=== PATIENT | female | born 1995 | race African-American/Black ===

== ENCOUNTER → 2020-02-19 | Outpatient (CLI) | payer BC, SELFPAY ==
[2020-02-19 12:53] VITALS: BMI 44.1
[2020-02-19 17:38] LABS: Amphetamine Urine VISTA NEGATIVE (<1000 ng/mL); Barbiturate Urine VISTA NEGATIVE (< 200 ng/mL); Benzodiazepine Urine VISTA NEGATIVE (< 200 ng/mL); Cocaine Urine VISTA NEGATIVE (< 300 ng/mL); Ecstacy Urine VISTA NEGATIVE (< 500 ng/mL); Methadone Urine VISTA NEGATIVE (< 300 ng/mL); PCP Urine VISTA NEGATIVE (< 25 ng/mL); THC Urine VISTA NEGATIVE (< 50 ng/mL); Vista UDS pH Range 6
[2020-02-19 18:38] LABS: Chlamydia Trachomatis by PCR Negative (Negative); Neisserai gonorrhoeae by PCR Negative (Negative); Probe Check PASS; Sample Adequacy Control PASS; Specimen Processing Control PASS
[2020-02-21 16:33] LABS: HPV Reflexed? NOT INDICATED
== END | disposition home or self-care (01) ==
LOC: LABSPEC 16:23
PROVIDERS: Referring Provider Obstetrics & Gynecology; Visit Provider Obstetrics & Gynecology
DX: Z34.90 Encounter for supervision of normal pregnancy, unspecified, unspecified trimester (principal); Z12.4 Encounter for screening for malignant neoplasm of cervix
CPT/HCPCS: 80307; 87086; 87088; 87491; 87591; 88175; G0145

== ENCOUNTER → 2020-03-22 14:08 | Outpatient (CLI) | payer BC, SELFPAY ==
[2020-03-22 13:46] VITALS: BMI 44.1
[2020-03-22 15:16] LABS: NATERA MAILED SPECIMEN
== END ==
PROVIDERS: Referring Provider Obstetrics & Gynecology; Visit Provider Obstetrics & Gynecology
DX: Z34.82 Encounter for supervision of other normal pregnancy, second trimester (principal)
CPT/HCPCS: 36415

== ENCOUNTER → 2020-03-29 09:47 | Outpatient (CLI) | payer BC, SELFPAY ==
[2020-03-22 13:46] VITALS: BMI 44.1
[2020-03-29 11:27] LABS: Glucose GTT-Gestation. Fasting 95 mg/dL (<105)
[2020-03-29 13:39] LABS: Glucose GTT-Gestational 1 Hr 127 mg/dL (<190)
[2020-03-29 13:58] LABS: Glucose GTT-Gestational 2 Hr 96 mg/dL (<165)
[2020-03-29 15:00] LABS: Glucose GTT-Gestational 3 Hr 101 L (<145)
== END ==
PROVIDERS: Referring Provider Obstetrics & Gynecology; Visit Provider Obstetrics & Gynecology
DX: O99.810 Abnormal glucose complicating pregnancy (principal); O99.210 Obesity complicating pregnancy, unspecified trimester; E66.9 Obesity, unspecified; Z3A.00 Weeks of gestation of pregnancy not specified
CPT/HCPCS: 36415; 82951; 82952

== ENCOUNTER 2020-05-16 14:39 | Emergency (ER) | payer BC, SELFPAY ==
[2020-05-16 14:04] VITALS: BMI 44.1
[2020-05-16 14:41] VITALS: BP 138/77; PULSE 107; RESP 18; TEMP 36.8; O2SAT 98; BMI 44.0
--- NOTE | 2020-05-16 14:56 | ED.DCSUM_ITS ---
History of Present Illness Chief Complaint: Abd Pain Informant: Patient Narrative: 24 year-old G1, P0 at 20 weeks presents with concern for right lower quadrant pain. Patient was seen in her [employer] office this morning and was complaining of abdominal pain and sent into the emergency department for further evaluation. States that she felt as if she had to have a bowel movement this morning and when she finished she wiped and there was a small bit of spotting coming from her vagina. States that since that time she has had pain in her right lower quadrant that radiates into her groin and back. States it is aching in nature. Does admit to an episode of vomiting with continued nausea. Denies any dysuria, fever, chills, anorexia, further vaginal bleeding or discharge. Dr. Victoriano Bach [employer] called emergency department with concern for ureterolithiasis versus appendicitis. Advised blood work, urinalysis, and likely CT scan with pain control and antiemetics. Past Medical History - Allergies and Home Meds Allergies/Adverse Reactions: Allergies morphine Adverse Reaction (Severe, Verified 05/16/20 14:47) Anaphylaxis Primary Care Physician: Carolin Cain MD [STAFF PHYSICIAN] - Prior records reviewed: Yes Past Medical History: None Surgical History: no surgical history Lives: Alone Smoking Status: Never smoker Alcohol: None Drugs: None Review of Systems General: Denies: Chills, Fever, Sweats Eyes: Denies: Visual changes - bilaterally, Diplopia ENT: Denies: Rhinorrhea, Sore throat Cardiovascular: Denies: Chest pain, Palpitations Respiratory: Denies: Dyspnea, Cough, Dyspnea on exertion Gastrointestinal: Reports: Abdominal pain, Nausea, Vomiting. Denies: Diarrhea, Melena, Hematochezia Genitourinary: Denies: Dysuria, Hematuria, Frequency Musculoskeletal: Denies: Back pain, Extremity Pain Skin: Denies: Rash, Wounds Neurological: Denies: Headache, Weakness, Numbness Physical Exam Vital Signs/Narrative: Vital Signs Temp Pulse Resp BP Pulse Ox 05/16/20 14:41 98.3 F 107 H 18 138/77 H 98 Inital Vital Signs reviewed: Yes General: Well nourished, Well developed, No Acute Distress Head: Normocephalic, Atraumatic Eyes: Perrl, EOMI ENT: Moist mucous membranes, No rhinorrhea Neck: Supple, Nontender Cardiovascular: Regular rate, Regular rhythm, No murmurs Respiratory: No distress, CTA bilaterally, Chest nontender Abdomen: Soft, Nondistended, Normal bowel sounds, - - TTP in the RLQ. No rebound or rigidity. 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 Gravid uterus. Normal appendix. No hydronephrosis or radiodense ureterolithiasis. Electronically Signed: Jose Armas MD at 17:23 EDT , Service support , Laboratory Data 05/16/20 05/16/20 05/16/20 15:05 15:05 15:25 WBC 13.1 H RBC 4.38 Hgb 12.7 Hct 38.6 MCV 88.1 MCH 29.0 MCHC 32.9 RDW Std Deviation 40.9 RDW Coeff of Denise 12.9 Plt Count 307 MPV 10.2 Immature Gran % (Auto) 0.400 Neut % (Auto) 68.7 Lymph % (Auto) 24.9 Falls % (Auto) 4.7 Eos % (Auto) 1.1 Baso % (Auto) 0.2 Absolute Neuts (auto) 9.0 H Absolute Lymphs (auto) 3.26 Nucleated RBC % 0 Sodium 138 Potassium 3.8 Chloride 108 H Carbon Dioxide 25.0 Anion Gap 5 BUN 3 L Creatinine 0.55 Estim Creat Clear Calc 164.83 Est GFR (MDRD) Af Amer 172 Est GFR (MDRD) Non-Af 142 BUN/Creatinine Ratio 5.4 L Glucose 106 Calcium 8.8 Total Bilirubin 0.20 AST 8 L ALT 15 Alkaline Phosphatase 65 Total Protein 7.4 Albumin 2.9 L Globulin 4.5 H Albumin/Globulin Ratio 0.6 L Lipase 39 L Urine Color Yellow Urine Clarity Sl. Cloudy Urine pH 7.0 Ur Specific [place] 1.010 Urine Protein Negative Urine Glucose (UA) Normal Urine Ketones Negative Urine Occult Blood Negative Urine Nitrite Negative Urine Bilirubin Negative Urine Urobilinogen 1 H Ur Leukocyte Esterase Negative Urine RBC 0 SEEN Urine WBC 0 SEEN Ur Squamous Epith Cells 0-5 SEEN Urine Bacteria 0 SEEN Urine Mucus 0 SEEN - Medical Decision Making Appears well nontoxic. Vital signs within normal limits. Work shows a leukocytosis. CT of the abdomen pelvis with p.o. and IV contrast shows no acute appendicitis or ureterolithiasis. Spoke with Dr. Victoriano Bach who is agreeable with discharge home. She did request Keflex 4 times daily for the next 7 days. Patient was agreeable with this plan and given Zofran in the antibiotics for home. Asked to return for new or worsening symptoms. Discharged home in stable condition. ED Disposition - Plan for ED Patient: Disposition: Home or Assisted Living Diagnosis: Abdominal pain affecting Instructions: ED Abdominal Pain Unkn Cause Fem Prescriptions: Cephalexin [Keflex] 500 mg PO Q6 #28 cap Transmission Status: Received by [id number] Ondansetron [Zofran Odt] 4 mg PO Q8H PRN PRN #10 tab PRN Reason: Nausea Transmission Status: Received by [id number] Referrals: Carolin Cain MD [STAFF PHYSICIAN] -
[2020-05-16 15:17] LABS: Absolute Lymphocyte Count 3.26 X10^3/uL (0.83-4.51); Basophil# 0.02 X10^3/uL; Basophil% 0.2 % (0-1); Eosinophil# 0.14 X10^3/uL; Eosinophils% 1.1 % (0-5); Hematocrit 38.6 % (37-47); Hemoglobin 12.7 g/dL (12.0-15.0); Lymphocyte # 3.26 X10^3/ul (4.0); Lymphocyte % 24.9 % (19-41); Mean Corp Hgb Conc 32.9 g/dL (32-36); Mean Corpuscular Volume 88.1 fL (81-99); Mean Platelet Vol. 10.2 fl (6.2-12.0); Monocyte# 0.62 X10^3/uL; Monocyte% 4.7 % (0-10); NRBC Flagged by Analyzer 0 % (0-5); Neutrophil # 8.99 X10^3/uL (2.7-7.7); Neutrophil % 68.7 % (47-70); Platelet Count 307 K/mm3 (150-450); RBC Distribution Width CV 12.9 % (11.6-14.6); RBC Distribution Width SD 40.9 fl (35.1-43.9); Red Blood Count 4.38 M/mm3 (4.2-5.4); White Blood Count 13.1 K/mm3 (4.4-11.0)
[2020-05-16] MEDS: 0.9% Normal Saline 1,000 ML 1000 ML IV (15:29)
[2020-05-16] MEDS: Ondansetron 4 MG/2 ML Vial IV (15:29)
[2020-05-16 15:32] LABS: ALB/GLOB Ratio 0.6 RATIO (0.9-2.4); AST(SGOT) 8 U/L (15-37); Alanine Aminotransfer ALT/SGPT 15 U/L (13-56); Albumin, Serum 2.9 g/dL (3.2-5.0); Alkaline Phosphatase 65 U/L (45-117); Anion Gap 5 (5-15); BUN 3 mg/dL (7-18); BUN/Creat Ratio 5.4 RATIO (10-20); Calcium,Total 8.8 mg/dL (8.5-10.1); Chloride 108 mmol/L (98-107); Creatinine, Serum 0.55 mg/dL (0.55-1.02); EST Glomerular Filtration Rate 142 mL/min (>60); Est Glom Filt Rate - Afr Amer 172 mL/min (>60); Estimated Creatinine Clearance 164.83 ml/min; Globulin 4.5 g/dL (2.2-4.2); Glucose 106 mg/dL (74-106); Lipase 39 U/L (73-393); Potassium 3.8 mmol/L (3.5-5.1); Protein, Total 7.4 g/dL (6.4-8.2); Sodium Level 138 mmol/L (136-145)
[2020-05-16 15:39] LABS: Bacteria 0 SEEN /hpf (None Seen); Mucous, Urine 0 SEEN /hpf (<or=2+); Red Blood Cells-Urine 0 SEEN /hpf (0-5); White Blood Cells 0 SEEN /hpf (0-5)
--- NOTE | 2020-05-16 15:42 | CT_ITS ---
STUDY: CT ABDOMEN AND PELVIS WITH CONTRAST REASON FOR EXAM: Female, 24 years old. RLQ PAIN, RT FLANK PAIN, PT IS 22 WKS RADIATION DOSAGE (If Supplied By Facility): CTDIvol = ( 18.74 ) mGy, DLP = ( 1299.35 ) mGycm TECHNIQUE: Transaxial images were obtained from the dome of the diaphragm to the symphysis pubis without oral contrast. IV 100mL Isovue-300 was administered. Sagittal and coronal images were reconstructed. Individualized dose optimization techniques were used for this CT. COMPARISON: None. FINDINGS: The visualized lung bases are unremarkable. The visualized portions of the heart are within normal limits. Normal liver. Normal gallbladder and extrahepatic biliary system. Normal spleen. Normal pancreas. Normal bilateral adrenal glands. Normal right kidney. Normal left kidney. Normal visualized stomach. There is oral contrast throughout the small bowel. Normal colon. The appendix is visualized and appears normal. Normal abdominal aorta. Normal inferior vena cava. Normal retroperitoneum. Normal urinary bladder. Gravid uterus noted. Normal abdominal wall. Transitional vertebrae and Pseudoarticulation L5 and S1. 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 Gravid uterus. Normal appendix. No hydronephrosis or radiodense ureterolithiasis. Electronically Signed: Jose Armas MD at 17:23 EDT , Service support ,
[2020-05-16 15:44] LABS: Color, Urine Yellow (Yellow); Glucose, Dipstick Normal (Normal); Ketone-Dipstick Negative (Negative); Leukocyte Esterase-Dipstick Negative /ul (Negative); Nitrite-Dipstick Negative (Negative); Occult Blood-Urine Negative /ul (Negative); Protein-Dipstick Negative (Negative); Urine Bilirubin Dipstick Negative (Negative); Urine Clarity Sl. Cloudy (Clear); Urine Urobilinogen 1 mg/dl (Normal)
[2020-05-16 16:52] LABS: Squamous Epithelial Cells - UA 0-5 SEEN /hpf (5-10)
[2020-05-16 17:42] VITALS: BP 138/67; PULSE 59; RESP 16; O2SAT 99
== END 2020-05-16 17:47 | disposition home or self-care (01) ==
PROVIDERS: Emergency Provider Emergency Medicine
DX: O26.892 Other specified pregnancy related conditions, second trimester (principal); R10.31 Right lower quadrant pain; O21.9 Vomiting of pregnancy, unspecified; Z3A.20 20 weeks gestation of pregnancy
CPT/HCPCS: 74177; 80053; 81001; 83690; 85025; 96361; 96374; 99283; J7030; Q9967; A4216; J2405

== ENCOUNTER → 2020-07-19 06:51 | Outpatient (CLI) | payer BC, SELFPAY ==
[2020-06-24 11:14] VITALS: BMI 44.0
[2020-07-19 07:39] LABS: Glucose GTT-Gestation. Fasting 126 mg/dL (<105)
[2020-07-19 09:25] LABS: Glucose GTT-Gestational 1 Hr 176 mg/dL (<190)
[2020-07-19 10:55] LABS: Glucose GTT-Gestational 2 Hr 141 mg/dL (<165)
[2020-07-19 10:57] LABS: Glucose GTT-Gestational 3 Hr 106 L (<145)
== END ==
PROVIDERS: Referring Provider Obstetrics & Gynecology; Visit Provider Obstetrics & Gynecology
DX: R69 Illness, unspecified (principal)
CPT/HCPCS: 36415; 82951; 82952

== ENCOUNTER → 2020-08-02 13:13 | Outpatient (CLI) | payer BC, SELFPAY ==
[2020-06-24 11:14] VITALS: BMI 44.0
[2020-07-19 15:46] VITALS: BMI 44.0
--- NOTE | 2020-08-02 13:15 | US_ITS ---
STUDY: SECOND AND THIRD TRIMESTER OBSTETRICAL ULTRASOUND - LIMITED REASON FOR EXAM: Female, 25 years old GROWTH -- SUPERVISION OF HIGH RISK -- OBESITY LMP: 12/23/2019. PRIOR ULTRASOUND: None. TECHNIQUE: Transabdominal TECHNICAL QUALITY: Adequate. FINDINGS: There is a single intrauterine fetus. The fetus is in a breech presentation. There is demonstrated cardiac activity with a heart rate of 133 bpm. There is a normal amniotic fluid volume. The largest amniotic fluid pocket measures 3.9 cm x 5.3 cm. The amniotic fluid index (ELOINA) is 14.7 cm. The placenta is anterior in location and is not low lying. There are Grade 1 placental changes. The cervix measures 3.7 cm in length. BIOMETRY: BPD: 7.7 cm: 31 weeks, 0 days HC: 29.6 cm: 32 weeks, 1 days AC: 27.96 cm: 32 weeks, 1 days FL: 6.14 cm: 32 weeks, 0 days Age by LMP: 31 weeks, 6 days. DEB by LMP: 09/28/2020. age by current US: 32 weeks, 0 days. DEB by current US: 09/27/2020. Estimated weight: 1870 grams, +/- 273 grams, 41 percentile. US/OB Limited With Biometrics IMPRESSION: Single live intrauterine gestation with a mean gestational age of 32 weeks. Electronically Signed: Martínez Venegas, at 14:30 EDT , Service support ,
== END ==
PROVIDERS: Referring Provider Obstetrics & Gynecology; Visit Provider Obstetrics & Gynecology
DX: O09.93 Supervision of high risk pregnancy, unspecified, third trimester (principal); Z3A.32 32 weeks gestation of pregnancy
CPT/HCPCS: 76816

== ENCOUNTER → 2020-08-26 17:16 | Outpatient (CLI) | payer BC, SELFPAY ==
[2020-08-26 15:25] VITALS: BMI 43.2
== END | disposition home or self-care (01) ==
LOC: LABSPEC 17:16
PROVIDERS: Visit Provider Nurse Practitioner Women's Health
CPT/HCPCS: 87086; 87088

== ENCOUNTER → 2020-08-30 12:47 | Outpatient (CLI) | payer BC, SELFPAY ==
[2020-06-24 11:14] VITALS: BMI 44.0
[2020-08-26 15:25] VITALS: BMI 43.2
--- NOTE | 2020-08-30 12:48 | US_ITS ---
STUDY: SECOND AND THIRD TRIMESTER OBSTETRICAL ULTRASOUND REASON FOR EXAM: Female, 25 years old GROWTH LMP: 12/23/2019. TECHNIQUE: Transabdominal TECHNICAL QUALITY: Limited. Examination limited due to obesity. PRIOR ULTRASOUND: Comparison is made with prior study dated 08/02/2020. FINDINGS: There is a single intrauterine fetus. The fetus is in a cephalic presentation. There is demonstrated cardiac activity with a heart rate of 123 bpm. There is a normal amniotic fluid volume. The largest amniotic fluid pocket measures 4.8 cm. The amniotic fluid index (ELOINA) is 12.4 cm. The placenta is anterior in location and is not low lying. There are Grade 1 placental changes. The cervix measures 3.5 cm in length. The adnexal regions are not visualized. BIOMETRY: BPD: 8.7 cm: 35 weeks, 0 days HC: 31.4 cm: 35 weeks, 1 days AC: 30.7 cm: 34 weeks, 4 days FL: 6.8 cm: 34 weeks, 5 days CI: 81% FL/BPD: 78% FL/HC: FL/AC: 22% HC/AC: 1.02 age by current US: 34 weeks, 5 days. DEB by current US: 10/06/2020. Estimated weight: 2506 grams, +/- 371 grams, 23 %. age by prior US: 36 weeks, 0 days. DEB by prior US: 09/27/2020. Age by LMP: 35 weeks, 6 days. DEB by LMP: 09/28/2020. US/OB Limited With Biometrics IMPRESSION: Single live intrauterine gestation with a mean gestational age of 36 weeks. The measurements obtained today fall within the normal expected range. Electronically Signed: Martínez Venegas, at 14:00 EDT , Service support ,
== END ==
PROVIDERS: Referring Provider Obstetrics & Gynecology; Visit Provider Obstetrics & Gynecology
DX: Z34.93 Encounter for supervision of normal pregnancy, unspecified, third trimester (principal)
CPT/HCPCS: 76816; 87081

== ENCOUNTER 2020-09-21 18:50 | Inpatient (IN) | payer BC, SELFPAY ==
[2020-09-20 14:10] VITALS: BMI 42.7
[2020-09-21 18:20] VITALS: BP 123/80; PULSE 105; BMI 43.0
[2020-09-21 19:47] VITALS: BP 122/75; PULSE 93
[2020-09-21 19:52] LABS: Absolute Neutrophil Count 8.1 X10^3/uL (2.0-7.7); Basophil# 0.04 X10^3/uL; Basophil% 0.3 % (0-1); Eosinophil# 0.16 X10^3/uL; Eosinophils% 1.3 % (0-5); Hematocrit 40.8 % (37-47); Hemoglobin 13.3 g/dL (12.0-15.0); Lymphocyte % 28.3 % (19-41); Mean Corp Hgb Conc 32.6 g/dL (32-36); Mean Corpuscular Hgb 27.9 pg (27.0-32.0); Mean Corpuscular Volume 85.7 fL (81-99); Mean Platelet Vol. 10.3 fl (6.2-12.0); Monocyte# 0.75 X10^3/uL; Monocyte% 5.9 % (0-10); NRBC Flagged by Analyzer 0 % (0-5); Neutrophil # 8.12 X10^3/uL (2.7-7.7); Neutrophil % 63.9 % (47-70); Platelet Count 345 K/mm3 (150-450); RBC Distribution Width CV 13.7 % (11.6-14.6); RBC Distribution Width SD 42.5 fl (35.1-43.9); Red Blood Count 4.76 M/mm3 (4.2-5.4); White Blood Count 12.7 K/mm3 (4.4-11.0)
--- NOTE | 2020-09-21 20:19 | PCM.HPOB.BLA ---
- Problem List (1) Abnormal heart rate Status: Acute (2) 36 weeks gestation of Status: Acute Comment: Done at work on 09/16/20- NOT DETECTED; see scanned result (3) Abnormal glucose affecting Status: Acute Comment: normal 3 hr gtt. 1/4 values abnormal on repeat GTT. Recommended monitoring diet. Offered toucher up consult. (4) Active asthma Status: Acute Comment: singulair daily, mild intermittent (5) History of recurrent miscarriages Status: Acute Comment: APL testing negative at [facility] (6) Obesity affecting Status: Acute Qualifiers: Comment: 1 tm glucola. weekly nsts and growth us q 4 wks after 32. encouraged healthy weight gain in . (7) Status: Acute Qualifiers: Comment: carrier, nipt- low risk female, and ntd screening declined. Anatomy US normal (8) Supervision of high risk , antepartum Status: Acute Comment: PRR( labs/faxed to ) DEB 09/28/20 girl Edwardo Gonzales History and Physical Date of Admission: 09/21/20 Intake Vital Signs 09/20/20 Height 5 ft 9.5 in 09/20/20 Weight: 294 lb 2 oz 09/20/20 BMI 42.7 09/20/20 BP 124/86 H Intake Visit Reasons: 39 WK OB/NST Is patient in pain?: No Allergies morphine Adverse Reaction (Severe, Verified 09/20/20 14:10) Anaphylaxis Medications famotidine 20 mg tablet 20 mg PO DAILY 06/21/20 [History Confirmed 09/20/20] vitamin#30 30 mg iron-10 mg iron-folic acid 1 mg-omg3 capsule cap PO 08/30/20 [History Confirmed 09/20/20] Last Menstral Period: 12/23/19 Zika: Zika virus screening: Negative : No PFSH PFSH Medical History Active asthma (Acute) Anxiety and depression (Acute) Surgical History History of intestinal surgery (Acute) Family History Mother Diabetes CAD (coronary artery disease) Heart disease Hypertension Neuropathy Father history of drug and alcohol abuse Grandmother Myocardial infarction Heart disease Social History (Updated 09/21/20 @ 09:[address] Tanja Herman MD) number of children: 0 current occupational status: employed current occupation: MA at [employer] Smoking Status: Never smoker alcohol intake: never substance use type: does not use seatbelt use: always do you feel safe at home: Yes additional social history: Miller Rolon Works at [employer] Pregancy History 4 Elective abortions Hx Para Spontaneous abortions 3 Hx # Term Pregnancies Ectopic pregnancies Hx # Pregnancies Multiple births # of living children HPI 39 WK OB/NST: Details: RICKIE WEBSTER is a 25 year old who presents for decreased movement and is admitted for induction of labor for Category II FHT. OB Visit DEB Calculator Estimated Delivery Date Method Current WG Current Estimate 09/28/20 LMP (Certain) 39w 0d Other Estimates 10/01/20 Ultrasound #1 38w 4d Expected Delivery Route/Plan Labor Preferences- CB/BF classes: declines labor support person: Gonzales labor intervention preferences: open to standard interventions pain management options preferred: desires natural, but open to epidural cut cord/dad catch: cord, maybe : yes PP control planned: yes discussed possible routes of delivery and associated risks: discussed possible delivery modalities and possible indications for each including R/B/A of , VAVD, FAVD, and CS. questions answered. special requests: none Specific Issue/Plans flu vaccine: decline tdap vaccine: 08/09 rhogam: NA LARC form signed: 08/02 Problem list reviewed and updated with the most current plan of care details and appropriate orders placed. Relevant counseling for the gestational age provided. Continue routine care and follow up unless otherwise noted in visit notes/problem list details Initial Weight: 303 lb Date EGA Weight BP Urine Prot Glucose FHR FuHt Pres Dilation Effaced St Visit Note 03/22/20 12w 6d 303 lb (+0 oz) 122/72 Negative Negative 160 SM- no vb cramping plan NipT today 04/25/20 17w 5d 301 lb 4 oz (-1 lb 12 oz) 122/66 Negative Negative 151 NO VB. Has felt flutter. US scheduled. 05/16/20 20w 5d 299 lb (-4 lb) 132/80 Negative Negative 150 0 had vb and pelvic pressure and abdominal pain, to ER for immediate evluation had vb and pelvic pressure and abdominal pain, to ER for immediate evaluation for possible appendicitis or kidney stones. labor not suspected 05/24/20 21w 6d 301 lb (-2 lb) 126/80 Negative Negative 145 22 SM- no vb lof good fm no regular ctx 06/21/20 25w 6d 295 lb (-8 lb) 120/78 145 26 SM- no vb lof good fm no regular ctx. plan 3 hour gtt 07/19/20 29w 6d 291 lb 4 oz (-11 lb 12 oz) 128/76 Trace Negative 145 29 GP - no LOF, VB, DFM, ctx. 11/18 values abnormal on 3h GTT. Rec monitoring diet. Offered nutrition referral. 08/02/20 31w 6d 295 lb 4 oz (-7 lb 12 oz) 124/76 Negative Negative 145 31 GP - no LOF, VB, DFM, Ctx. Denies complaints. 08/09/20 32w 6d 297 lb 6 oz (-5 lb 10 oz) 118/80 Negative Negative GP - NST only, reactive 08/16/20 33w 6d 294 lb 4 oz (-8 lb 12 oz) 130/84 Negative Negative 140 34 GP - no ctx LOF, VB, DFM. Labor preferences reviewed. 08/23/20 34w 6d 293 lb 4 oz (-9 lb 12 oz) 120/74 Negative Negative SM- no vb lof good fm no regular ctx 08/26/20 35w 2d 295 lb 8 oz (-7 lb 8 oz) 128/76 Negative Negative 156 0 MH-work in for CTX Q30 min. Cervix closed. UA: MH-work in for CTX Q30 min. Cervix closed. UA: neg X 10. 08/30/20 35w 6d 294 lb (-9 lb) 140 SM- no vb lof good fm no regular ctx gbs collected 09/06/20 36w 6d 292 lb 2 oz (-10 lb 14 oz) 126/80 Negative Negative 140 37 0.5 GP - no LOF, VB, DFM. Irregular ctx. NST reactive. 09/13/20 37w 6d 114/86 120 0.5 SM- no vb lof good fm no regular ctx 09/20/20 38w 6d 294 lb 2 oz (-8 lb 14 oz) 124/86 Negative Negative 140 0.5 GP - no LOF, VB, DFM. Occasional ctx. Discussed IOL at 41w if does not go into labor. ACOG First Trimester First Trimester: Desire for , Alcohol, Tobacco Cessation, Illicit/Recreational Drug/Substance Use, Intimate Partner Violence, Barriers to care, Unstable Housing, Communication Barriers, Environmental/Work Hazards, Anticipated Course of Care, Toxoplasmosis Precations, Use of Any medications, Sexual activity, Exercise, Dental Care, Sauna/Hot tub use, Seat Belt use, Childbirth classes/Hospital facilities, , Travel, Indications for US and Screening for Aneuploidy Diagnostics Diagnostics Diagnostics Gest Glucose Tolerance MG/DL 07/19/20 Details: HIV: Urine Culture: Sequential Screen: NIPT Screen: ROS ROS Const Reports system reviewed and no additional complaints, except as documented Card Reports system reviewed and no additional complaints, except as documented Resp Reports system reviewed and no additional complaints, except as documented GI Reports system reviewed and no additional complaints, except as documented, Reports nausea Reports system reviewed and no additional complaints, except as documented Musc Reports system reviewed and no additional complaints, except as documented all other systems reviewed and negative Exam Const General: cooperative, healthy appearing, comfortable, no acute distress, well developed, well groomed Nutritional Appearance: average body habitus, well nourished Orientation: alert, awake, oriented x3 HENMT Head: normal to inspection, normocephalic, atraumatic Eyes Pupils: PERRL, accommodation normal Resp Effort & Inspection: normal respiratory effort, able to speak in complete sentences, symmetric chest movement Cardio Rate: regular rate GI Palpation: soft, no guarding, no masses, nontender Skin General: no rashes or lesions noted, elasticity normal, turgor normal Neuro General: alert, awake, oriented x3 Cranial Nerves: CN's II-XI intact bilaterally, sense of smell intact, PERRL, accommodation normal, EOM intact bilaterally Speech: speech normal Gait: normal gait Psych Appearance: grossly normal, well kempt Mental Status: mental status grossly normal Mood: congruent mood Affect: normal affect Speech and Movement: speech and movement normal Attitude: cooperative Thought Process: normal Thought Content: normal Judgment: judgment good Results POC Urinalysis 2 Dip (Clinic) Office Urine Glucose Negative Last Edit by Rona Díaz on 09/20/20 15:06 Office Urine Protein Negative Last Edit by Rona Díaz on 09/20/20 15:06 Assessment & Plan Problems 1. 36 weeks gestation of Z3A.36 Done at work on 09/16/20- NOT DETECTED; see scanned result 2. Abnormal glucose affecting O99.810 normal 3 hr gtt. 1/4 values abnormal on repeat GTT. Recommended monitoring diet. Offered toucher up consult. 3. History of recurrent miscarriages N96 APL testing negative at [facility] 4. 38 weeks gestation of Z3A.38 carrier, nipt- low risk female, and ntd screening declined. Anatomy US normal 5. Supervision of high risk , antepartum O09.90 PRR( labs/faxed to ) DEB 09/28/20 girl Edwardo Gonzales 6. Obesity affecting O99.210 1 tm glucola. weekly nsts and growth us q 4 wks after 32. encouraged healthy weight gain in . 7. Active asthma J45.909 singulair daily, mild intermittent Patient presented to triage for Decreased Movement and had significant deceleration on monitor. Given has also had decreased movement throughout the week, recommended induction of labor. Plan management for with Rios bulb/cytotec followed by pitocin/AROM. Pain management: desires natural but open to epidural. GBS negative. Rh positive COVID negative Rubella immune Management of any complications: none I have reviewed the [facility] and made any clinically relevant updates. Orders Orders: POC Urinalysis 2 Dip (Clinic) 09/20/20 OB NST 09/20/20 O99.210 Coding Diagnoses 36 weeks gestation of Z3A.36 Abnormal glucose affecting O99.810 History of recurrent miscarriages N96 38 weeks gestation of Z3A.38 ??Weeks of gestation: 38 weeks Supervision of high risk , antepartum O09.90 Obesity affecting O99.210 Active asthma J45.909 UPDATE- I have seen the patient and performed any clinically relevant updates to the history and physical exam. Tanja Herman MD
[2020-09-21] MEDS: 0.9% Saline Lock 10 ML Syringe IV (20:22)
[2020-09-21] MEDS: Lactated Ringers 500 ML 999 ML IV (20:43)
[2020-09-21] MEDS: Lactated Ringers 1,000 ML 50 ML IV (21:14)
[2020-09-21] MEDS: 0.9% Normal Saline Single 100 ML IV.SOLN. IY (21:23)
[2020-09-21] MEDS: Oxytocin 30 units/NS 500 ml 30 UNITS/500 ML IV.SOLN IV (22:11)
[2020-09-21 22:22] VITALS: BP 125/75; PULSE 88; TEMP 36.6
[2020-09-21 23:38] VITALS: TEMP 36.9
[2020-09-21 23:39] VITALS: BP 132/83; PULSE 101
[2020-09-22] VITALS (36 sets, daily range): BP systolic 88–150; BP diastolic 48–88; PULSE 74–107; TEMP 36.1–37.2; O2SAT 97–100
[2020-09-22] MEDS: Acetaminophen 325 MG Tablet PO (00:32)
[2020-09-22] MEDS: Lactated Ringers 500 ML 999 ML IV (03:01)
[2020-09-22] MEDS: fentaNYL-bupivacaine (epidural) 100 ML BAG EPIDURAL ×4 (03:51→20:01)
[2020-09-22] MEDS: Lactated Ringers 1,000 ML 200 ML IV ×3 (07:07→20:10)
[2020-09-22 07:42] LABS: Hepatitis B Surface Antigen Non-Reactive (Nonreactive)
[2020-09-22] MEDS: Ondansetron 4 MG/2 ML Vial IV ×2 (10:19→18:06)
[2020-09-22] MEDS: Lactated Ringers 1,000 ML 999 ML IV (16:01)
[2020-09-23] VITALS (25 sets, daily range): BP systolic 95–126; BP diastolic 42–82; PULSE 68–97; RESP 14–19; TEMP 36.1–36.9; O2SAT 96–99
[2020-09-23] MEDS: Lactated Ringers 500 ML 999 ML IV (00:43)
[2020-09-23] MEDS: fentaNYL-bupivacaine (epidural) 100 ML BAG EPIDURAL ×2 (00:44→05:29)
[2020-09-23] MEDS: Lactated Ringers 1,000 ML 200 ML IV ×2 (01:41→06:41)
--- NOTE | 2020-09-23 08:16 | PCM.PN.BLA ---
Progress Note Patient seen and examined this am. FHT Cat I at this time, but had multiple decelerations overnight requiring pitocin to be discontinued. Discussed with patient that cervix is unchanged at this time - remains /-2. Discussed that 1100 will be 18 hours since the last time that she made cervical change and that she has been on pitocin with her water broken for ~24 hours at this time. Discussed that if she does not make cervical change on exam at 1100, will plan to proceed with primary for failed induction. RN and charge nurse made aware of plan of care. All questions answered. STROKE Vital Signs/Narrative: Vital Signs Temp Pulse BP Pulse Ox 09/23/20 06:57 80 112/56 L 09/23/20 06:56 98 09/23/20 05:59 74 113/55 L 09/23/20 05:58 97.5 F L 09/23/20 04:56 77 107/60 98
--- NOTE | 2020-09-23 08:47 | PCM.PN.BLA ---
Progress Note Plan of care again reviewed with nursing. Will recheck at 1030 and if no change, will plan for at 1100. STROKE Vital Signs/Narrative: Vital Signs Temp Pulse BP Pulse Ox 09/23/20 08:21 97.5 F L 95 117/68 97 09/23/20 06:57 80 112/56 L 09/23/20 06:56 98 09/23/20 05:59 74 113/55 L 09/23/20 05:58 97.5 F L 09/23/20 04:56 77 107/60 98
[2020-09-23] MEDS: Sodium Citrate/Citric Acid 30 ML UDC PO (10:47)
[2020-09-23] MEDS: Methylergonovine 0.2 MG/ML Ampul IM (11:33)
[2020-09-23] MEDS: Oxytocin 30 units/NS 500 ml 30 UNITS/500 ML IV.SOLN 167 UNITS IV (12:23)
--- NOTE | 2020-09-23 12:35 | NURSING ---
RN talked w/ Dr. Herman about difficulty feeling fundus. Per MD okay as long as bleeding remains okay. Fundus can be felt at times.
[2020-09-23] MEDS: Acetaminophen 500 MG Tablet 1000 MG PO ×2 (13:25→19:47)
[2020-09-23] MEDS: Lactated Ringers 1,000 ML 100 ML IV (15:34)
[2020-09-23] MEDS: 0.9% Saline Lock 10 ML Syringe IV (15:34)
[2020-09-23] MEDS: oxyCODONE 5 MG Tablet PO ×3 (17:05→22:38)
[2020-09-23] MEDS: Ketorolac 30 MG/ML Syringe IV (18:36)
--- NOTE | 2020-09-23 21:22 | OP.PCM_ITS ---
Problem List (1) Abnormal heart rate Status: Acute (2) 36 weeks gestation of Status: Acute Comment: Done at work on 09/16/20- NOT DETECTED; see scanned result (3) Abnormal glucose affecting Status: Acute Comment: normal 3 hr gtt. 1/4 values abnormal on repeat GTT. Recommended monitoring diet. 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 (4) Active asthma Status: Acute Comment: singulair daily, mild intermittent (5) History of recurrent miscarriages Status: Acute Comment: APL testing negative at [facility] (6) Obesity affecting Status: Acute Qualifiers: Comment: 1 tm glucola. weekly nsts and growth us q 4 wks after 32. encouraged healthy weight gain in . (7) Status: Acute Qualifiers: Comment: carrier, nipt- low risk female, and ntd screening declined. Anatomy US normal (8) Supervision of high risk , antepartum Status: Acute Comment: PRR( labs/faxed to ) DEB 09/28/20 girl Edwardo Gonzales Delivery Classification: ERNESTO Final DEB: 09/28/20 Gestational age: 39 Weeks and 2 Days power transmission engineer: Carolin Cain Type of Anesthesia:: Spinal Special Medications: Ancef/Azithromycin Date of Procedure: 09/23/20 Pre-Operative Diagnosis: Term , induction of labor for category 2 heart rate tracing, failed induction Post-Operative Diagnosis: Same Indications: A 5-year-old G4, P0 at 39 weeks gestation admitted for induction of labor for category 2 heart rate tracing. She underwent a 36-hour induction including Rios bulb and Pitocin. Her water had been broken since 9 AM on 09/22. Her cervix had been unchanged at 5/60/-3 since 1700 on 09/22. As she had been 18 hours on Pitocin with her water broken at the same dilation, I recommended proceeding with a primary section for failed induction. The risks, benefits, indications, and alternatives to the procedure were discussed with the patient including bleeding, infection, and visceral or vascular injury and she agreed to proceed. Indications for : Failure to Progress, Failed Induction Description of Procedure: The patient is a 25-year-old G4, P0 at 39 weeks gestation presented for induction of labor for category 2 heart rate tracing and is undergoing a primary for failed induction. Spinal anesthesia was placed without difficulty. Rios catheter was placed. The patient was placed in the dorsal supine position with leftward tilt. Patient was prepped and draped in the normal sterile fashion. Pfannenstiel skin incision was made with the scalpel and carried through to the underlying layer of fascia with the scalpel. Fascia was nicked in the midline and the incision extended laterally. The rectus bellies were dissected off superiorly and inferiorly with out complication both sharply and bluntly. The peritoneum was entered digitally. The incision was stretched and a low transverse uterine incision was made with the scalpel. The infant's head was delivered atraumatically followed by the anterior and posterior shoulders without complication the rest of the delivered. The cord was clamped and cut and the was handed off to awaiting nurse. The placenta was delivered spontaneously immediately following and was noted to be intact and have a three-vessel cord. The uterus was exteriorized cleared of all clots and debris, and the incision was closed in a double layer closure using #1 Monocryl. The ovaries and fallopian tubes were noted to be within normal limits. The uterus was returned to the maternal abdomen and gutters were cleared of all clots and debris. The peritoneum was closed with 3-0 Monocryl in a running fashion. Gloves were changed prior to fascial closure. Fascia was closed with 0 PDS in a running fashion. Subcutaneous tissue was copiously irrigated and the skin was closed with 3-0 Monocryl in a subcuticular fashion. Mepilex dressing was applied without complication. Patient was taken to recovery in stable condition. It was discussed with the patient that based on the clinical information obtained during this encounter, combined with her history, I discussed with the patient that I do feel her pelvis was somewhat tight, but that if she strongly desired a trial at a vaginal delivery in the future and she were to go into labor on her own, I feel that this would be a possibility. Amniotic Membrane Rupture Type: Artificial Amniotic Fluid Description: Clear Placenta Disposition: [facility] Drain: Rios to straight drain Fluids Replaced: 500 Cord Entanglement: Around neck x 1, loose Nuchal Cord Compression: Without compression Cord Vessel Description: 3 Vessels Esitmated Blood Loss (ml): 600 cc Infant Gender: Female Delayed cord clamping: Yes Antibiotic Given: Ancef 3 grams IV x1, Zithromax 500 mg/5 mL X1 Pt instructed on risks of surgery: Bleeding, Anesthesia Risks, Infection, Injury to surrounding structure(s) including bowel and bladder Complications: None - Admit VTE Documentation VTE Present on Admission: No VTE Mechan Device Prophylaxis: SCD's VTE Pharm Prophylaxis ordered?: Yes
[2020-09-24] VITALS: BP 116/72; PULSE 85; RESP 18; TEMP 36.3; O2SAT 97
[2020-09-24] MEDS: Ketorolac 30 MG/ML Syringe IV ×3 (00:13→12:53)
[2020-09-24] MEDS: Enoxaparin 40 MG/0.4 ML Syringe SC ×3 (00:14→23:03)
[2020-09-24] MEDS: 0.9% Saline Lock 10 ML Syringe IV ×3 (00:14→12:52)
[2020-09-24] MEDS: Acetaminophen 500 MG Tablet 1000 MG PO ×4 (02:10→20:44)
[2020-09-24 04:00] VITALS: BP 110/55; PULSE 70; RESP 18; TEMP 36.4
[2020-09-24] MEDS: oxyCODONE 5 MG Tablet PO ×4 (04:09→19:37)
[2020-09-24 04:31] LABS: Hematocrit 31.6 % (37-47); Hemoglobin 10.2 g/dL (12.0-15.0); Mean Corp Hgb Conc 32.3 g/dL (32-36); Mean Corpuscular Hgb 28.5 pg (27.0-32.0); Mean Corpuscular Volume 88.3 fL (81-99); Mean Platelet Vol. 10.1 fl (6.2-12.0); Platelet Count 258 K/mm3 (150-450); RBC Distribution Width CV 13.9 % (11.6-14.6); RBC Distribution Width SD 44.2 fl (35.1-43.9); Red Blood Count 3.58 M/mm3 (4.2-5.4); White Blood Count 15.7 K/mm3 (4.4-11.0)
--- NOTE | 2020-09-24 07:55 | PN.OBGYN_ITS ---
Patient Problems: Active and Suspected Problems (Last Reviewed 09/20/20 @ 14:10 by Rona Díaz) Abnormal heart rate (Acute) 36 weeks gestation of (Acute) Done at work on 09/16/20- NOT DETECTED; see scanned result Abnormal glucose affecting (Acute) normal 3 hr gtt. / values abnormal on repeat GTT. Recommended monitoring diet. Offered assistant elementary teacher consult. History of recurrent miscarriages (Acute) APL testing negative at [facility] (Acute) carrier, nipt- low risk female, and ntd screening declined. Anatomy US normal Supervision of high risk , antepartum (Acute) PRR( labs/faxed to [facility]) DEB 09/28/20 girl Edwardo Gonzales Obesity affecting (Acute) 1 tm glucola. weekly nsts and growth us q 4 wks after 32. encouraged healthy weight gain in . Active asthma (Acute) singulair daily, mild intermittent Subjective: Patient doing well without complaints. Tolerating PO. Ambulating and voiding without difficulty. well. Denies chest pain, shortness of breath, calf pain/swelling, fevers, chills, lightheadedness. - Physical Exam Vitals/I&O's: Vital Signs Temp Pulse Resp BP Pulse Ox 97.5 F L 70 18 110/55 L 97 09/24/20 04:00 09/24/20 04:00 09/24/20 04:00 09/24/20 04:00 09/24/20 00:00 Oxygen Delivery Method Room Air Weight: 295 lb 10.238 oz Body Mass Index (BMI) 43.0 Intake and Output for Last 24 Hours 09/22/20 09/23/20 09/24/20 23:59 23:59 23:59 Intake Total 5463.01 / 5463.01 6173.35 / 6173.35 Output Total 1550 / 1550 2100 / 2400 300 / 300 Balance 3913.01 / 3913.01 4073.35 / 3773.35 -300 / -300 General: Alert, Oriented x3 Abdomen: Soft, Non-Distended, - - FF below U. Dressing dry and intact. Appropriately tender Microbiology Past 72 Hours 09/21/20 22:20 Mucosa - Nasopharyngeal Respiratory Syncytial Virus Ag Scrn - Final Laboratory Results 09/24/20 04:20: WBC 15.7 H, RBC 3.58 L, Hgb 10.2 L, Hct 31.6 L, MCV 88.3, MCH 28.5, MCHC 32.3, RDW Std Deviation 44.2 H, RDW Coeff of Denise 13.9, Plt Count 258, MPV 10.1 Current Medications Acetaminophen (Acetaminophen 500 Mg Tablet) 1,000 mg PO Q6H REPLACED BY [facility] Last Admin: 09/24/20 02:10 Dose: 1,000 mg Documented by: Bisacodyl (Bisacodyl 10 Mg Suppository) 10 mg RECTAL UD PRN PRN Reason: If no BM Enoxaparin Sodium (Enoxaparin 40 Mg/0.4 Ml Syringe) 40 mg SC 1130,2330 REPLACED BY [facility] Last Admin: 09/24/20 00:14 Dose: 40 mg Documented by: Famotidine (Famotidine 20 Mg Tablet) 20 mg PO DAILY REPLACED BY [facility] Hydrocortisone (Hydrocortisone 2.5% Crm) 1 applic TOPICAL TID PRN PRN; Protocol PRN Reason: Discomfort Ketorolac Tromethamine (Ketorolac 30 Mg/Ml Syringe) 30 mg IV Q6 REPLACED BY [facility] Stop: 09/24/20 12:01 Last Admin: 09/24/20 06:39 Dose: 30 mg Documented by: Methylergonovine Maleate (Methylergonovine 0.2 Mg/Ml Ampul) 0.2 mg IM X1 PRN PRN Reason: Uterine Atony Last Admin: 09/23/20 11:33 Dose: 0.2 mg Documented by: Montelukast Sodium (Montelukast 10 Mg Tablet) 10 mg PO DAILY REPLACED BY [facility] Naproxen (Naproxen 250 Mg Tablet) 500 mg PO Q8H REPLACED BY [facility] Ondansetron HCl (Ondansetron 4 Mg/2 Ml Vial) 4 mg IV Q4H PRN PRN PRN Reason: Nausea Oxycodone HCl (Oxycodone 5 Mg Tablet) 5 - 10 mg PO Q4H PRN PRN PRN Reason: Pain Score 4-10 Last Admin: 09/24/20 04:09 Dose: 10 mg Documented by: Multivit/Folic Acid/Iron ( Vits Tablet) 1 tablet PO DAILY@1200 REPLACED BY [facility] Prochlorperazine Edisylate (Prochlorperazine 10 Mg/2 Ml Vial) 10 mg IV Q6H PRN PRN PRN Reason: NAUSEA Senna/Docusate Sodium (Senna/Docusate Sodium 1 Tablet) 0 tablet PO DAILY [facility] Simethicone (Simethicone 80 Mg Tablet) 80 mg PO PCHS PRN PRN Reason: Indigestion/stomach pain Sodium Chloride (0.9% Saline Lock 10 Ml Syringe) 5 - 15 ml IV UD PRN PRN Reason: SALINE FLUSH Last Admin: 09/24/20 06:39 Dose: 10 ml Documented by: Medical Necessity - Tobacco Use Smoking Status: Former smoker Assessment/Plan All Active Problems (Last Reviewed 09/20/20 @ 14:10 by Rona Díaz) Abnormal heart rate (Acute) 36 weeks gestation of (Acute) Abnormal glucose affecting (Acute) History of recurrent miscarriages (Acute) (Acute) Supervision of high risk , antepartum (Acute) Obesity affecting (Acute) Active asthma (Acute) s/p LTCS PPD # 1 1. routine post care 2. breast feeding- support given 3. rh positive 4. rubella immune
[2020-09-24 08:00] VITALS: BP 129/72; PULSE 78; RESP 18; TEMP 35.7; O2SAT 97
[2020-09-24] MEDS: Prenatal Vits Tablet 1 TABLET PO (09:52)
[2020-09-24] MEDS: Senna/Docusate Sodium 1 Tablet PO (09:52)
[2020-09-24] MEDS: Montelukast 10 MG Tablet PO (09:53)
[2020-09-24] MEDS: Famotidine 20 MG Tablet PO (12:40)
[2020-09-24 13:00] VITALS: BP 137/87; PULSE 84; RESP 16; TEMP 35.7
[2020-09-24 17:00] VITALS: BP 132/84; PULSE 80; RESP 16; TEMP 35.8
[2020-09-24] MEDS: Naproxen 250 MG Tablet 500 MG PO (18:30)
[2020-09-24 19:29] VITALS: BP 123/74; PULSE 74; RESP 16; TEMP 36.4
[2020-09-25 02:18] VITALS: BP 112/65; PULSE 74; RESP 16; TEMP 36.4
[2020-09-25] MEDS: Acetaminophen 500 MG Tablet 1000 MG PO ×2 (02:20→08:08)
[2020-09-25] MEDS: Naproxen 250 MG Tablet 500 MG PO ×2 (02:21→10:31)
[2020-09-25] MEDS: oxyCODONE 5 MG Tablet PO ×2 (02:21→08:08)
[2020-09-25 07:18] VITALS: BP 138/70; PULSE 80; RESP 16; TEMP 36.3; O2SAT 97
--- NOTE | 2020-09-25 07:45 | PCM.PN.OB ---
Patient Problems: Active and Suspected Problems (Last Reviewed 09/20/20 @ 14:10 by Rona Díaz) Abnormal heart rate (Acute) 36 weeks gestation of (Acute) Done at work on 09/16/20- NOT DETECTED; see scanned result Abnormal glucose affecting (Acute) normal 3 hr gtt. 11/18 values abnormal on repeat GTT. Recommended monitoring diet. Offered attendant arcade consult. History of recurrent miscarriages (Acute) APL testing negative at [facility] (Acute) carrier, nipt- low risk female, and ntd screening declined. Anatomy US normal Supervision of high risk , antepartum (Acute) PRR( labs/faxed to [facility]) DEB 09/28/20 girl Edwardo Gonzales Obesity affecting (Acute) 1 tm glucola. weekly nsts and growth us q 4 wks after 32. encouraged healthy weight gain in . Active asthma (Acute) singulair daily, mild intermittent Subjective: Patient doing well without complaints. Tolerating PO. Ambulating and voiding without difficulty. Breast feeding well. Denies chest pain, shortness of breath, calf pain/swelling, fevers, chills, lightheadedness. - Physical Exam Vitals/I&O's: Vital Signs Temp Pulse Resp BP Pulse Ox 97.4 F L 80 16 138/70 H 97 09/25/20 07:18 09/25/20 07:18 09/25/20 07:18 09/25/20 07:18 09/25/20 07:18 Oxygen Delivery Method Room Air Weight: 295 lb 10.238 oz Body Mass Index (BMI) 43.0 Intake and Output for Last 24 Hours 09/23/20 09/24/20 09/25/20 23:59 23:59 23:59 Intake Total 6173.35 / 6173.35 Output Total 2100 / 2400 300 / 300 Balance 4073.35 / 3773.35 -300 / -300 General: Alert, Oriented x3, Cooperative Abdomen: Soft, Non-Distended, - - FF below U. Dressing dry and intact. Minimally tender Current Medications Acetaminophen (Acetaminophen 500 Mg Tablet) 1,000 mg PO Q6H [facility] Last Admin: 09/25/20 02:20 Dose: 1,000 mg Documented by: Bisacodyl (Bisacodyl 10 Mg Suppository) 10 mg RECTAL UD PRN PRN Reason: If no BM Enoxaparin Sodium (Enoxaparin 40 Mg/0.4 Ml Syringe) 40 mg SC 1130,2330 [facility] Last Admin: 09/24/20 23:03 Dose: 40 mg Documented by: Famotidine (Famotidine 20 Mg Tablet) 20 mg PO DAILY [facility] Last Admin: 09/24/20 12:40 Dose: 20 mg Documented by: Hydrocortisone (Hydrocortisone 2.5% Crm) 1 applic TOPICAL TID PRN PRN; Protocol PRN Reason: Discomfort Methylergonovine Maleate (Methylergonovine 0.2 Mg/Ml Ampul) 0.2 mg IM X1 PRN PRN Reason: Uterine Atony Last Admin: 09/23/20 11:33 Dose: 0.2 mg Documented by: Montelukast Sodium (Montelukast 10 Mg Tablet) 10 mg PO DAILY [facility] Last Admin: 09/24/20 09:53 Dose: 10 mg Documented by: Naproxen (Naproxen 250 Mg Tablet) 500 mg PO Q8H [facility] Last Admin: 09/25/20 02:21 Dose: 500 mg Documented by: Ondansetron HCl (Ondansetron 4 Mg/2 Ml Vial) 4 mg IV Q4H PRN PRN PRN Reason: Nausea Oxycodone HCl (Oxycodone 5 Mg Tablet) 5 - 10 mg PO Q4H PRN PRN PRN Reason: Pain Score 4-10 Last Admin: 09/25/20 02:21 Dose: 5 mg Documented by: Multivit/Folic Acid/Iron ( Vits Tablet) 1 tablet PO DAILY@1200 [facility] Last Admin: 09/24/20 09:52 Dose: 1 tablet Documented by: Prochlorperazine Edisylate (Prochlorperazine 10 Mg/2 Ml Vial) 10 mg IV Q6H PRN PRN PRN Reason: NAUSEA Senna/Docusate Sodium (Senna/Docusate Sodium 1 Tablet) 0 tablet PO DAILY [facility] Last Admin: 09/24/20 09:52 Dose: 2 tablet Documented by: Simethicone (Simethicone 80 Mg Tablet) 80 mg PO PCHS PRN PRN Reason: Indigestion/stomach pain Sodium Chloride (0.9% Saline Lock 10 Ml Syringe) 5 - 15 ml IV UD PRN PRN Reason: SALINE FLUSH Last Admin: 09/24/20 12:52 Dose: 10 ml Documented by: Medical Necessity - Tobacco Use Smoking Status: Former smoker Assessment/Plan All Active Problems (Last Reviewed 09/20/20 @ 14:10 by Rona Díaz) Abnormal heart rate (Acute) 36 weeks gestation of (Acute) Abnormal glucose affecting (Acute) History of recurrent miscarriages (Acute) (Acute) Supervision of high risk , antepartum (Acute) Obesity affecting (Acute) Active asthma (Acute) s/p LTCS PPD # 2 1. routine post care 2. breast feeding- support given 3. rh positive 4. rubella immune 5. home today
--- NOTE | 2020-09-25 07:47 | DCINST_ITS ---
Additional Instructions: If you experience any of the following, contact your healthcare provider. * Bleeding that soaks a pad every hour for 2 hours * Fever 100.4 or higher * Unrelieved incision or abdominal pain * Swelling, redness, discharge or bleeding from your incision or episiotomy site * Your incision begins to separate * Problems urinating (including inability to urinate or burning while urinating). * Visual changes * Severe headache * Flu-like symptoms * Pain or redness in one of both of your breasts * Pain, warmth, tenderness or swelling in your legs, especially the calf area * Frequent nausea and vomiting * Symptoms of depression or anxiety If you experience any of the following, call 911 or go to the nearest Emergency Room. * Chest pain * Problems breathing * Seizure activity * Partial or complete paralysis of a body part, slurred speech, weakness or drooping of the face, or a sudden inability to walk or hold your balance Allergies/Adverse Reactions: Allergies morphine Allergy (Severe, Verified 09/23/20 16:58) Anaphylaxis Medications to take at Discharge famotidine 20 mg tablet 20 mg PO DAILY 06/21/20 vitamin#30 30 mg iron-10 mg iron-folic acid 1 mg-omg3 capsule 1 cap PO DAILY 08/30/20 Montelukast [Singulair] 10 mg PO DAILY 09/21/20 Naproxen [Naprosyn] 500 mg PO BID PRN PRN #60 tab 09/24/20 Naproxen [Naprosyn] 500 mg PO BID PRN PRN #60 tab 09/24/20 Oxycodone [Oxyir] 5 mg PO Q6H PRN PRN 7 Days #15 tab 09/24/20 The following prescriptions were given: Naproxen [Naprosyn] 500 mg PO BID PRN PRN #60 tab PRN Reason: Pain Transmission Status: Received by [facility]/pharmacy #[id number] Naproxen [Naprosyn] 500 mg PO BID PRN PRN #60 tab PRN Reason: Pain Transmission Status: Received by [facility] Oxycodone [Oxyir] 5 mg PO Q6H PRN PRN 7 Days #15 tab PRN Reason: Pain Score 6-10/10 Transmission Status: Received by [facility] Follow-Up: Call to make an appointment with your doctor for an incision check in 1-2 weeks. You will also need a 6 week post- follow up appointment. Test results from this visit will be discussed in further detail at your follow- up appointment, if applicable. Primary Care Physician: Care Physician,No Primary [Primary Care Provider] -
--- NOTE | 2020-09-25 07:47 | PCM.DCCSEC ---
Additional Instructions: If you experience any of the following, contact your healthcare provider. Bleeding that soaks a pad every hour for 2 hours Fever 100.4 or higher Unrelieved incision or abdominal pain Swelling, redness, discharge or bleeding from your incision or episiotomy site Your incision begins to separate Problems urinating (including inability to urinate or burning while urinating). Visual changes Severe headache Flu-like symptoms Pain or redness in one of both of your breasts Pain, warmth, tenderness or swelling in your legs, especially the calf area Frequent nausea and vomiting Symptoms of depression or anxiety If you experience any of the following, call 911 or go to the nearest Emergency Room. Chest pain Problems breathing Seizure activity Partial or complete paralysis of a body part, slurred speech, weakness or drooping of the face, or a sudden inability to walk or hold your balance Allergies/Adverse Reactions: Allergies morphine Allergy (Severe, Verified 09/23/20 16:58) Anaphylaxis Medications to take at Discharge famotidine 20 mg tablet 20 mg PO DAILY 06/21/20 vitamin#30 30 mg iron-10 mg iron-folic acid 1 mg-omg3 capsule 1 cap PO DAILY 08/30/20 Montelukast [Singulair] 10 mg PO DAILY 09/21/20 Naproxen [Naprosyn] 500 mg PO BID PRN PRN #60 tab 09/24/20 Naproxen [Naprosyn] 500 mg PO BID PRN PRN #60 tab 09/24/20 Oxycodone [Oxyir] 5 mg PO Q6H PRN PRN 7 Days #15 tab 09/24/20 The following prescriptions were given: Naproxen [Naprosyn] 500 mg PO BID PRN PRN #60 tab PRN Reason: Pain Transmission Status: Received by [facility]/pharmacy #[id number] Naproxen [Naprosyn] 500 mg PO BID PRN PRN #60 tab PRN Reason: Pain Transmission Status: Received by [facility] Oxycodone [Oxyir] 5 mg PO Q6H PRN PRN 7 Days #15 tab PRN Reason: Pain Score 6-10/10 Transmission Status: Received by [facility] Follow-Up: Call to make an appointment with your doctor for an incision check in 1-2 weeks. You will also need a 6 week post- follow up appointment. Test results from this visit will be discussed in further detail at your follow-up appointment, if applicable. Primary Care Physician: Care Physician,No Primary [Primary Care Provider] -
[2020-09-25] MEDS: Senna/Docusate Sodium 1 Tablet PO (10:31)
[2020-09-25] MEDS: Prenatal Vits Tablet 1 TABLET PO (10:31)
[2020-09-25] MEDS: Enoxaparin 40 MG/0.4 ML Syringe SC (10:31)
[2020-09-25] MEDS: Montelukast 10 MG Tablet PO (10:31)
== END 2020-09-25 10:40 | disposition home or self-care (01) | DRG 788 ==
LOC: WPOUT 18:55 → WP 18:55
PROVIDERS: Obstetrics & Gynecology; Admitting Provider Obstetrics & Gynecology; Referring Provider Family Medicine; Visit Provider Obstetrics & Gynecology
DX: O76 Abnormality in fetal heart rate and rhythm complicating labor and delivery (principal); O36.8130 Decreased fetal movements, third trimester, not applicable or unspecified; O61.0 Failed medical induction of labor; O62.2 Other uterine inertia; O69.81X0 Labor and delivery complicated by cord around neck, without compression, not applicable or unspecified; O26.23 Pregnancy care for patient with recurrent pregnancy loss, third trimester; O99.814 Abnormal glucose complicating childbirth; O99.52 Diseases of the respiratory system complicating childbirth; J45.909 Unspecified asthma, uncomplicated; O99.214 Obesity complicating childbirth; E66.01 Morbid (severe) obesity due to excess calories; Z3A.39 39 weeks gestation of pregnancy; Z37.0 Single live birth; Z87.891 Personal history of nicotine dependence
CPT/HCPCS: 59025; 59050; 85025; 85027; 86850; 86900; 86901; 87340; 87426; 99218; J7120; A4216; G0378; J2405; J3490

== ENCOUNTER → 2023-02-05 | Outpatient (CLI) | payer BC, SELFPAY ==
[2023-02-08 22:06] LABS: Chlamydia By Nucleic Acid AMP Negative (Negative)
[2023-02-09 08:58] LABS: Gonococcus By Nucleic Acid AMP Negative (Negative)
[2023-02-16 12:20] LABS: HPV Reflexed? NOT INDICATED
== END | disposition home or self-care (01) ==
PROVIDERS: Visit Provider Obstetrics & Gynecology
DX: O09.90 Supervision of high risk pregnancy, unspecified, unspecified trimester (principal); Z12.4 Encounter for screening for malignant neoplasm of cervix; Z3A.00 Weeks of gestation of pregnancy not specified
CPT/HCPCS: 87086; 87088; 87491; 87591; 88175; G0145

== ENCOUNTER → 2023-04-23 | Outpatient (CLI) | payer BC, SELFPAY ==
--- NOTE | 2023-04-23 13:24 | US_ITS ---
INDICATION: anatomy EXAMINATION: Ultrasound US OB Greater Than 14 Weeks Ultrasound OB transvaginal TECHNIQUE: Transabdominal and endovaginal pelvic ultrasound was performed with grayscale, color flow, and M-mode Doppler. Transvaginal evaluation of the cervix performed. COMPARISON: August 30, 2020. Provided EGA: 19 weeks 5 days correlating with September 12, 2023 delivery date. FINDINGS: Single live intrauterine with normal heart rate 144 bpm. Current cephalic presentation. Cervix 4.0 cm and closed on transvaginal exam. Deepest vertical pocket 4.3 cm. Placenta posterior, grade 0 without evidence of abruption or previa, 4 cm from the internal os on transvaginal imaging Unremarkable nose and lips. Unremarkable choroid plexus and lateral ventricle. Normal cerebellum. Normal cisterna magnum. 2 upper extremities. Four-chamber heart. Solitary echogenic focus in the left atrium. Stomach filled. Kidneys present without pelviectasis. Normal and placental cord insertion. Bladder filled. Three-vessel cord. The lower extremities. Limited visualization, grossly intact. Nasal bone present. Male anatomy noted. Unremarkable sagittal appearance of the spine and skin line. Biparietal diameter 4.4 cm 19 weeks 3 days Head circumference 16.7 cm 19 weeks 3 days Abdominal skull is 14.5 cm 19 weeks 6 days Femur length 3.1 cm 19 weeks 4 days Composite ultrasound age 19 weeks 4 days correlating with 09/13/2023 Normal head circumference abdominal circumference ratio. Estimated weight 307 g +/- 46 g. This is 43 percentile compared to prior dating. IMPRESSION: Single live intrauterine with normal heart rate. dating by biometry is concordant with provided dating. Single echogenic cardiac focus of unknown clinical significance. Remainder of the anatomy as described above is normal in appearance. Consider level 2 anatomy exam. Electronically Signed: Daniel Smallwood MD at 7:37 EDT Reading Location ID and State: [facility] / [place] Tel , Service support , INDICATION: anatomy EXAMINATION: Ultrasound US OB Greater Than 14 Weeks Ultrasound OB transvaginal TECHNIQUE: Transabdominal and endovaginal pelvic ultrasound was performed with grayscale, color flow, and M-mode Doppler. Transvaginal evaluation of the cervix performed. COMPARISON: August 30, 2020. Provided EGA: 19 weeks 5 days correlating with September 12, 2023 delivery date. FINDINGS: Single live intrauterine with normal heart rate 144 bpm. Current cephalic presentation. Cervix 4.0 cm and closed on transvaginal exam. Deepest vertical pocket 4.3 cm. Placenta posterior, grade 0 without evidence of abruption or previa, 4 cm from the internal os on transvaginal imaging Unremarkable nose and lips. Unremarkable choroid plexus and lateral ventricle. Normal cerebellum. Normal cisterna magnum. 2 upper extremities. Four-chamber heart. Solitary echogenic focus in the left atrium. Stomach filled. Kidneys present without pelviectasis. Normal and placental cord insertion. Bladder filled. Three-vessel cord. The lower extremities. Limited visualization, grossly intact. Nasal bone present. Male anatomy noted. Unremarkable sagittal appearance of the spine and skin line. Biparietal diameter 4.4 cm 19 weeks 3 days Head circumference 16.7 cm 19 weeks 3 days Abdominal skull is 14.5 cm 19 weeks 6 days Femur length 3.1 cm 19 weeks 4 days Composite ultrasound age 19 weeks 4 days correlating with 09/13/2023 Normal head circumference abdominal circumference ratio. Estimated weight 307 g +/- 46 g. This is 43 percentile compared to prior dating. US/OB Anatomy w/ Transvaginal IMPRESSION: Single live intrauterine with normal heart rate. dating by biometry is concordant with provided dating. Single echogenic cardiac focus of unknown clinical significance. Remainder of the anatomy as described above is normal in appearance. Consider level 2 anatomy exam. Electronically Signed: Daniel Smallwood MD at 7:38 EDT ,
== END | disposition home or self-care (01) ==
LOC: OPUS 13:23
PROVIDERS: Referring Provider Obstetrics & Gynecology; Visit Provider Obstetrics & Gynecology
DX: Z34.91 Encounter for supervision of normal pregnancy, unspecified, first trimester (principal)
CPT/HCPCS: 76805; 76817

== ENCOUNTER → 2023-06-25 | Outpatient (CLI) | payer BC, SELFPAY ==
[2023-06-25 16:36] LABS: ALB/GLOB Ratio 0.6 RATIO (0.9-2.4); AST(SGOT) 6 U/L (15-37); Alanine Aminotransfer ALT/SGPT 10 U/L (13-56); Albumin, Serum 2.7 g/dL (3.2-5.0); Alkaline Phosphatase 87 U/L (45-117); Anion Gap 5 (5-15); BUN 4 mg/dL (7-18); BUN/Creat Ratio 7.3 RATIO (10-20); Calcium,Total 8.9 mg/dL (8.5-10.1); Chloride 106 mmol/L (98-107); Creatinine, Serum 0.55 mg/dL (0.55-1.02); EST Glomerular Filtration Rate 141 mL/min (>60); Est Glom Filt Rate - Afr Amer 170 mL/min (>60); Globulin 4.8 g/dL (2.2-4.2); Glucose 79 mg/dL (74-106); Potassium 3.9 mmol/L (3.5-5.1); Protein, Total 7.5 g/dL (6.4-8.2); Sodium Level 136 mmol/L (136-145); Uric Acid 3.7 mg/dL (2.6-6.0)
== END | disposition home or self-care (01) ==
PROVIDERS: Referring Provider Registered Nurse; Visit Provider Registered Nurse
DX: R51.9 Headache, unspecified (principal)
CPT/HCPCS: 36415; 80053; 82570; 84156; 84550

== ENCOUNTER 2023-07-13 13:56 | Outpatient (RCR) | payer BC, SELFPAY | END 2023-07-15 23:59 | LOC: DC 13:56 | PROVIDERS: Referring Provider Nurse Practitioner Women's Health; Visit Provider Nurse Practitioner Women's Health | DX: Z71.9 Counseling, unspecified (principal); O24.419 Gestational diabetes mellitus in pregnancy, unspecified control | CPT/HCPCS: 97802 ==

== ENCOUNTER → 2023-07-23 | Outpatient (CLI) | payer BC, SELFPAY ==
--- NOTE | 2023-07-23 13:59 | US_ITS ---
STUDY: SECOND AND THIRD TRIMESTER OBSTETRICAL ULTRASOUND - LIMITED REASON FOR EXAM: Female, 28 years old growth -- 32 weeks LMP: June 05, 2023. PRIOR ULTRASOUND: Comparison is made with prior study April 23, 2023. TECHNIQUE: Transabdominal TECHNICAL QUALITY: Adequate. FINDINGS: There is a single intrauterine fetus. The fetus is in a cephalic presentation. There is demonstrated cardiac activity with a heart rate of 155 bpm. There is a normal amniotic fluid volume. The largest amniotic fluid pocket measures 4.3 cm. The amniotic fluid index (ELOINA) is 12.35 cm. The placenta is fundal in location. There are Grade 2 placental changes. The cervix measures 3.9 cm in length. BIOMETRY: BPD: 7.63 cm: 30 weeks, 4 days HC: 29.82 cm: 33 weeks, 0 days AC: 29.02 cm: 33 weeks, 0 days FL: 6.24 cm: 32 weeks, 2 days Age by LMP: 30 weeks, 5 days. DEB by LMP: September 12, 2023. age by prior US: 32 weeks, 4 days. DEB by prior US: September 13, 2023. age by current US: 32 weeks, 3 days. DEB by current US: September 14, 2023. Estimated weight: 1991 grams, +/- 299 grams, 35 percentile. US/OB Limited With Biometrics IMPRESSION: Single live intrauterine gestation with mean gestational age of 32 weeks and 4 days. The measurements obtained today fall within normal expected range. Electronically Signed: Martínez Venegas MD at 15:25 EDT ,
== END | disposition home or self-care (01) ==
PROVIDERS: Referring Provider Obstetrics & Gynecology; Visit Provider Obstetrics & Gynecology
DX: O98.512 Other viral diseases complicating pregnancy, second trimester (principal); U07.1 COVID-19; Z3A.00 Weeks of gestation of pregnancy not specified
CPT/HCPCS: 76816

== ENCOUNTER → 2023-08-06 | Outpatient (CLI) | payer BC, SELFPAY | END | disposition home or self-care (01) | LOC: LABSPEC 16:20 | PROVIDERS: Referring Provider Advanced Practice Midwife; Visit Provider Advanced Practice Midwife | DX: R30.0 Dysuria (principal) | CPT/HCPCS: 87086 ==

== ENCOUNTER → 2023-08-20 | Outpatient (CLI) | payer BC, SELFPAY ==
--- NOTE | 2023-08-20 13:31 | US_ITS ---
STUDY: SECOND AND THIRD TRIMESTER OBSTETRICAL ULTRASOUND - LIMITED REASON FOR EXAM: Female, 28 years old growth -- 36 weeks LMP: PRIOR ULTRASOUND: 07/23/2023. TECHNIQUE: TECHNICAL QUALITY: Adequate. FINDINGS: There is a single intrauterine fetus. The fetus is in a cephalic presentation. There is demonstrated cardiac activity with a heart rate of 140 bpm. There is a normal amniotic fluid volume. The largest amniotic fluid pocket measures 4.8 cm. The amniotic fluid index (ELOINA) is 12.7 cm. The placenta is fundal. No evidence of previa. biometry: Biparietal diameter corresponds to 34 weeks 0 days, head circumference to 36 weeks 0 days, abdominal circumference 36 weeks 2 days, femur length 36 weeks 2 days. Mean sonographic estimated gestational age is 36 weeks 0 days with estimated date of delivery 09/17/2023. Estimated weight 2833 g +/-425 g. US/OB Limited With Biometrics IMPRESSION: Single live intrauterine gestation vertex presentation with EGA 36 weeks 0 days. Electronically Signed: Zaina Zuñiga MD at 23:08 EDT Reading Location ID and State: [id number] / Tel , Service support ,
== END | disposition home or self-care (01) ==
PROVIDERS: Referring Provider Obstetrics & Gynecology; Visit Provider Obstetrics & Gynecology
DX: O98.512 Other viral diseases complicating pregnancy, second trimester (principal); U07.1 COVID-19; Z3A.00 Weeks of gestation of pregnancy not specified
CPT/HCPCS: 76816; 87081

== ENCOUNTER 2023-08-23 10:35 | Outpatient (CLI) | payer BC, SELFPAY ==
[2023-08-23 10:55] VITALS: BP 135/83; PULSE 104; TEMP 36.6
[2023-08-23 10:59] VITALS: BMI 43.2
[2023-08-23] MEDS: Lactated Ringers 1,000 ML 999 ML IV (12:48)
[2023-08-23 12:49] LABS: Mucous, Urine 0 SEEN /hpf (<or=2+); Red Blood Cells-Urine 0 SEEN /hpf (0-5); White Blood Cells 0 SEEN /hpf (0-5)
[2023-08-23 12:56] LABS: Color, Urine Yellow (Yellow); Glucose, Dipstick Normal (Normal); Ketone-Dipstick 50 mg/dl (Negative); Leukocyte Esterase-Dipstick Negative /ul (Negative); Nitrite-Dipstick Negative (Negative); Occult Blood-Urine Negative /ul (Negative); Protein-Dipstick Negative (Negative); Urine Bilirubin Dipstick Negative (Negative); Urine Clarity Sl. Cloudy (Clear); Urine Urobilinogen 1 mg/dl (Normal)
[2023-08-23 13:05] LABS: Bacteria 1+ /hpf (None Seen); Squamous Epithelial Cells - UA 5-10 SEEN /hpf (5-10)
[2023-08-23 13:05] LABS: Hemoglobin 13.6 g/dL (12.0-15.0); Mean Corp Hgb Conc 33.2 g/dL (32-36); Mean Corpuscular Hgb 29.2 pg (27.0-32.0); Mean Platelet Vol. 10.5 fl (6.2-12.0); Platelet Count 334 K/mm3 (150-450); RBC Distribution Width CV 14.1 % (11.6-14.6); RBC Distribution Width SD 44.7 fl (35.1-43.9); Red Blood Count 4.66 M/mm3 (4.2-5.4); White Blood Count 14.1 K/mm3 (4.4-11.0)
[2023-08-23] MEDS: 0.9% Saline Lock 10 ML Syringe IV (13:48)
[2023-08-23] MEDS: Acetaminophen 500 MG Tablet 1000 MG PO (14:11)
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
== END 2023-08-23 14:35 | disposition home or self-care (01) ==
LOC: WPOUT 10:38 → WP 10:39
PROVIDERS: Referring Provider Registered Nurse; Visit Provider Registered Nurse
DX: O24.414 Gestational diabetes mellitus in pregnancy, insulin controlled (principal); F31.9 Bipolar disorder, unspecified; O99.343 Other mental disorders complicating pregnancy, third trimester; O99.513 Diseases of the respiratory system complicating pregnancy, third trimester; J45.909 Unspecified asthma, uncomplicated; Z87.891 Personal history of nicotine dependence; Z3A.37 37 weeks gestation of pregnancy; Z86.16 Personal history of COVID-19
CPT/HCPCS: 96365; 36415; 59025; 59050; 81001; 85027; J7120; A4216

== ENCOUNTER → 2023-08-27 | Outpatient (CLI) | payer BC, SELFPAY ==
[2023-08-27 18:18] LABS: Protein, Urine (Random) 33.2 mg/dL (<11.9); Protein:Creat Ratio 122 mg/g CRE (0-200)
== END | disposition home or self-care (01) ==
LOC: LABSPEC 16:55
PROVIDERS: Visit Provider Obstetrics & Gynecology
DX: O12.10 Gestational proteinuria, unspecified trimester (principal); Z3A.00 Weeks of gestation of pregnancy not specified
CPT/HCPCS: 82570; 84156

== ENCOUNTER 2023-09-07 05:03 | Inpatient (IN) | payer BC, SELFPAY ==
[2023-09-07] VITALS (19 sets, daily range): BP systolic 93–120; BP diastolic 46–72; PULSE 69–115; RESP 15–20; TEMP 36.1–36.7; O2SAT 95–100; BMI 43.4
[2023-09-07] MEDS: Lactated Ringers 1,000 ML 999 ML IV (05:55)
[2023-09-07] MEDS: Acetaminophen 500 MG Tablet 1000 MG PO ×3 (06:12→18:34)
[2023-09-07 06:25] LABS: Absolute Lymphocyte Count 3.54 X10^3/uL (0.83-4.51); Absolute Neutrophil Count 8.7 X10^3/uL (2.0-7.7); Basophil# 0.06 X10^3/uL; Basophil% 0.4 % (0-1); Eosinophil# 0.14 X10^3/uL; Hematocrit 41.7 % (37-47); Hemoglobin 13.4 g/dL (12.0-15.0); Lymphocyte # 3.54 X10^3/ul (0.83-4.51); Lymphocyte % 26.5 % (19-41); Mean Corp Hgb Conc 32.1 g/dL (32-36); Mean Corpuscular Hgb 28.2 pg (27.0-32.0); Mean Corpuscular Volume 87.6 fL (81-99); Mean Platelet Vol. 10.6 fl (6.2-12.0); Monocyte# 0.91 X10^3/uL; Monocyte% 6.8 % (0-10); NRBC Flagged by Analyzer 0 % (0-5); Neutrophil # 8.65 X10^3/uL (2.7-7.7); Neutrophil % 64.9 % (47-70); Platelet Count 328 K/mm3 (150-450); RBC Distribution Width CV 13.6 % (11.6-14.6); RBC Distribution Width SD 43.3 fl (35.1-43.9); Red Blood Count 4.76 M/mm3 (4.2-5.4); White Blood Count 13.4 K/mm3 (4.4-11.0)
[2023-09-07 06:44] LABS: Bedside Glucose 95 mg/dL (74-106)
[2023-09-07] MEDS: Lactated Ringers 1,000 ML 150 ML IV (06:56)
[2023-09-07] MEDS: Sodium Citrate/Citric Acid 30 ML UDC PO (06:58)
[2023-09-07] MEDS: Cefazolin 3 GM in 0.9% Normal Saline (100mL Bag) 100 ML IV (06:58)
--- NOTE | 2023-09-07 07:15 | NURSING ---
bedside report given to Danuta Castellano RN who is assuming care of pt at this time
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
--- NOTE | 2023-09-07 07:25 | EX.PCM.OBRPT ---
Assessment & Plan (1) Gestational diabetes: QUALIFIERS: Gestational diabetes mellitus control: insulin-controlled Trimester: third trimester Qualified Code(s): O24.414 - Gestational diabetes mellitus in , insulin controlled COMMENT: wardrobe stylist referral, test fasting & 2 hr post meals. 10U novolin N to be started. 2xweekly NST (2) Depression affecting : COMMENT: stopped Zoloft 8 weeks ago. Encouraged to restart (3) Bipolar disease, chronic: COMMENT: using zoloft (4) Previous delivery affecting : COMMENT: RLTCS scheduled for 09/07 @ 7:30 with (5) Supervision of high risk , antepartum: COMMENT: [id number] DEB 09/12/23, Livan pedersen (Fe), Gonzales (6) : QUALIFIERS: Weeks of gestation: 38 weeks Qualified Code(s): Z3A.38 - 38 weeks gestation of COMMENT: NIPT low risk, anatomy nl-echogenic focus refer to MFM. GBS negative (7) delivery delivered: COMMENT: RLTCS slava islas [id number] Maternal Data Information DEB Calculator Estimated Delivery Date Method Current WG Current Estimate 09/12/23 LMP (Certain) 39w 4d Other Estimates 09/10/23 Ultrasound #1 39w 6d Final DEB Source: LMP Details Operative Information Date of Procedure: 09/07/23 Pre-Operative Diagnosis: Previous Post-Operative Diagnosis: same Indications for : Repeat Elective Indications Narrative: Surgeon: Carolin Cain MD Classification: Scheduled Procedure Type: low transverse heel coverer machine operator #1: Whitley Jimenez heel coverer machine operator #2: Nico Reddy Type of Anesthesia: Spinal Special Medications: none Antibiotic Given: Ancef 3 grams IV x1 Drain: Rios to straight drain Estimated Blood Loss: 600 Fluids Replaced: crystalloid Findings Description of Procedure: Spinal anesthesia was placed without difficulty. Rios catheter was placed. The patient was placed in the dorsal supine position with leftward tilt. Patient was prepped and draped in the normal sterile fashion. Pfannenstiel skin incision was made with the scalpel and carried through to the underlying layer of fascia with the scalpel. Fascia was nicked in the midline and the incision extended laterally. The rectus bellies were dissected off superiorly and inferiorly with out complication both sharply and bluntly. The peritoneum was entered digitally. The incision was stretched and a low transverse uterine incision was made with the scalpel. The 's head was delivered atraumatically followed by the anterior and posterior shoulders without complication the rest of the delivered. The cord was clamped and cut and the was handed off to awaiting nurse. The placenta was delivered spontaneously immediately following and was noted to be intact and have a three-vessel cord. The uterus was exteriorized cleared of all clots and debris, and the incision was closed in a single layer closure using #1 Monocryl. additional figure of eight suture used on left side of indcision, The ovaries and fallopian tubes were noted to be within normal limits. The uterus was returned to the maternal abdomen and gutters were cleared of all clots and debris. The peritoneum was closed with 3-0 Monocryl in a running fashion. Gloves were changed prior to fascial closure. Fascia was closed with 0 PDS in a running fashion. Subcutaneous tissue was copiously irrigated and the skin was closed with 3-0 Monocryl in a subcuticular fashion. Mepilex dressing was applied without complication. Patient was taken to recovery in stable condition. It was discussed with the patient that based on the clinical information obtained during this encounter, combined with her history, at this time I would recommend cesareans for future deliveries if further pregnancies are desired. Amniotic Membrane Rupture Type: Artificial Amniotic Fluid Description: Clear Placenta Disposition: [facility] Cord Vessel Description: 3 Vessels Delayed Cord Clamping: Yes Complications Risks of Surgery Discussed w/Patient: Bleeding, Infection, Need for Future C-Sections and Injury to surrounding structure(s) including bowel and bladder Vaginal Delivery Complication Complications: None Admit VTE Documentation VTE Present on Admission: No VTE Mechan Device Prophylaxis: SCD's Procedures Urinary/Genital [id number]: [id number] Delivery [facility]
[2023-09-07 09:12] LABS: Syphilis Antibodies Non-reactive
[2023-09-07] MEDS: Oxytocin 15 Units/NS 250ml 15 UNITS/250 ML IV.SOLN 83 UNITS IV (09:16)
[2023-09-07] MEDS: 0.9% Saline Lock 10 ML Syringe IV ×3 (09:51→21:55)
[2023-09-07] MEDS: Ketorolac 30 MG/ML Syringe IV ×3 (09:51→21:55)
[2023-09-07] MEDS: oxyCODONE 5 MG Tablet PO ×4 (10:23→21:54)
[2023-09-07 10:33] LABS: Bedside Glucose 93 mg/dL (74-106)
[2023-09-07 10:43] LABS: Hepatitis B Surface Antibody Reactive
[2023-09-07 11:48] LABS: Hepatitis B Surface Antigen Non-Reactive (Nonreactive)
[2023-09-07] MEDS: Sertraline 50 MG Tablet 75 MG PO (13:01)
[2023-09-07] MEDS: Senna/Docusate Sodium 1 Tablet PO (13:02)
[2023-09-07] MEDS: Lactated Ringers 1,000 ML 100 ML IV (13:49)
[2023-09-07] MEDS: Enoxaparin 40 MG/0.4 ML Syringe SC (20:21)
[2023-09-08] MEDS: Acetaminophen 500 MG Tablet 1000 MG PO ×4 (00:34→18:17)
[2023-09-08] MEDS: oxyCODONE 5 MG Tablet PO ×5 (01:59→20:18)
[2023-09-08] MEDS: Ketorolac 30 MG/ML Syringe IV (04:03)
[2023-09-08] MEDS: 0.9% Saline Lock 10 ML Syringe IV (04:04)
[2023-09-08 04:11] VITALS: BP 100/58; PULSE 70; RESP 16; TEMP 36.6; O2SAT 98
[2023-09-08 07:00] LABS: Hematocrit 36.4 % (37-47); Hemoglobin 11.8 g/dL (12.0-15.0); Mean Corp Hgb Conc 32.4 g/dL (32-36); Mean Corpuscular Hgb 29.1 pg (27.0-32.0); Mean Corpuscular Volume 89.9 fL (81-99); Mean Platelet Vol. 10.1 fl (6.2-12.0); Platelet Count 263 K/mm3 (150-450); RBC Distribution Width CV 13.9 % (11.6-14.6); RBC Distribution Width SD 45.1 fl (35.1-43.9); Red Blood Count 4.05 M/mm3 (4.2-5.4); White Blood Count 12.4 K/mm3 (4.4-11.0)
[2023-09-08 07:01] LABS: Bedside Glucose 102 mg/dL (74-106)
--- NOTE | 2023-09-08 07:53 | PN.OBGYN_ITS ---
Subjective Subjective Patient doing well without complaints. Tolerating PO. Ambulating and voiding without difficulty. Feeding well. Denies chest pain, shortness of breath, calf pain/swelling, fevers, chills, lightheadedness. Objective Data Objective Data Vital Signs: Vital Signs Temp Pulse Resp BP Pulse Ox O2 Del Method 97.9 F 70 16 100/58 L 98 Room Air 09/08/23 04:11 09/08/23 04:11 09/08/23 04:11 09/08/23 04:11 09/08/23 04:11 09/08/23 04:11 Oxygen Delivery Method Room Air Weight: 293 lb 12.8 oz Body Mass Index (BMI) 43.4 Intake & Output: Intake and Output for Last 24 Hours 09/06/23 09/07/23 09/08/23 23:59 23:59 23:59 Intake Total 1918.33 / 1918.33 Output Total 1000 / 1000 Balance 918.33 / 918.33 Lab / Micro Data 09/08/23 06:50 Labs: Laboratory Results - last 24 hr 09/07/23 05:50: Syphilis Total Ab Non-reactive, Hep Bs Antigen Non-Reactive, Hep Bs Antibody Reactive 09/07/23 09:57: POC Glucose 93 09/08/23 06:42: POC Glucose 102 09/08/23 06:50: WBC 12.4 H, RBC 4.05 L, Hgb 11.8 L, Hct 36.4 L, MCV 89.9, MCH 2 9.1, MCHC 32.4, RDW Std Deviation 45.1 H, RDW Coeff of Denise 13.9, Plt Count 263, MPV 10.1 Physical Exam Const alert and oriented x3 HEENT normocephalic Eyes PERRL Neck full ROM Resp normal respiratory effort GI soft to palpation GI Narrative: FF below U. Dressing dry and intact Palpation: tender other (appropriately) Assessment & Plan (1) delivery delivered: COMMENT: RLTCS slava islas [id number] 39 (2) Gestational diabetes: QUALIFIERS: Gestational diabetes mellitus control: insulin- controlled Trimester: third trimester Qualified Code(s): O24.414 - Gestational diabetes mellitus in , insulin controlled COMMENT: machine stripper referral, test fasting & 2 hr post meals. 10U novolin N to be started. 2xweekly NST (3) Depression affecting : COMMENT: stopped Zoloft 8 weeks ago. Encouraged to restart (4) Bipolar disease, chronic: COMMENT: using zoloft PLAN: Plan s/p LTCS PPD # 1 1. routine post care 2. breast feeding- support given 3. rh positive 4. rubella immune 5. glucose stable
[2023-09-08] MEDS: Enoxaparin 40 MG/0.4 ML Syringe SC ×2 (07:58→20:19)
[2023-09-08 08:15] VITALS: BP 127/71; PULSE 75; RESP 16; TEMP 36.1; O2SAT 96
[2023-09-08] MEDS: Senna/Docusate Sodium 1 Tablet PO (09:49)
[2023-09-08] MEDS: Sertraline 50 MG Tablet PO (09:49)
[2023-09-08] MEDS: Ibuprofen 600 MG Tablet PO ×3 (09:50→21:42)
[2023-09-08] MEDS: Famotidine 20 MG Tablet 40 MG PO (09:50)
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
[2023-09-08 14:00] VITALS: BP 126/61; PULSE 77; RESP 18; TEMP 36.2; O2SAT 97
[2023-09-08 20:42] VITALS: BP 123/69; PULSE 81; RESP 16; TEMP 36.2; O2SAT 97
[2023-09-09] MEDS: Acetaminophen 500 MG Tablet 1000 MG PO ×2 (00:03→06:38)
[2023-09-09] MEDS: oxyCODONE 5 MG Tablet PO ×3 (00:03→09:03)
[2023-09-09 02:00] VITALS: BP 99/55; PULSE 73; RESP 16; TEMP 36.6; O2SAT 96
[2023-09-09] MEDS: Ibuprofen 600 MG Tablet PO ×2 (04:01→10:32)
--- NOTE | 2023-09-09 07:55 | PN.OBGYN_ITS ---
Subjective Subjective Patient doing well without complaints. Tolerating PO. Ambulating and voiding without difficulty. Feeding well. Denies chest pain, shortness of breath, calf pain/swelling, fevers, chills, lightheadedness. Objective Data Objective Data Vital Signs: Vital Signs Temp Pulse Resp BP Pulse Ox O2 Del Method 97.8 F 73 16 99/55 L 96 Room Air 09/09/23 02:00 09/09/23 02:00 09/09/23 02:00 09/09/23 02:00 09/09/23 02:00 09/09/23 02:00 Oxygen Delivery Method Room Air Weight: 293 lb 12.8 oz Body Mass Index (BMI) 43.4 Intake & Output: Intake and Output for Last 24 Hours 09/07/23 09/08/23 09/09/23 23:59 23:59 23:59 Intake Total 1918.33 / 1918.33 Output Total 1000 / 1000 Balance 918.33 / 918.33 Lab / Micro Data 09/08/23 06:50 Physical Exam Const alert and oriented x3 HEENT normocephalic Eyes PERRL Neck full ROM Resp normal respiratory effort GI soft to palpation GI Narrative: FF below U. Dressing dry and intact Palpation: tender other (appropriately) Assessment & Plan (1) delivery delivered: COMMENT: RLTCS slava islas [id number] (2) Gestational diabetes: QUALIFIERS: Gestational diabetes mellitus control: insulin- controlled Trimester: third trimester Qualified Code(s): O24.414 - Gestational diabetes mellitus in , insulin controlled COMMENT: 2 hr gct pp (3) Depression affecting : COMMENT: zoloft. stable (4) Bipolar disease, chronic: COMMENT: using zoloft PLAN: Plan s/p LTCS PPD # 2 1. routine post care 2. breast feeding- support given 3. rh positive 4. rubella immune 5. glucose and deppression stable 6. home today
[2023-09-09] MEDS: Enoxaparin 40 MG/0.4 ML Syringe SC (08:11)
[2023-09-09 08:21] VITALS: BP 103/62; PULSE 76; RESP 16; TEMP 36.3; O2SAT 99
[2023-09-09] MEDS: Senna/Docusate Sodium 1 Tablet PO (10:32)
[2023-09-09] MEDS: Sertraline 50 MG Tablet PO (10:32)
[2023-09-09] MEDS: Famotidine 20 MG Tablet 40 MG PO (12:42)
[2023-09-09 12:50] VITALS: BP 112/70; PULSE 77; RESP 16; TEMP 36.2; O2SAT 98
== END 2023-09-09 13:05 | disposition home or self-care (01) | DRG 788 ==
PROVIDERS: Admitting Provider Obstetrics & Gynecology; Visit Provider Obstetrics & Gynecology
PROC: 10D00Z1 Extraction of Products of Conception, Low, Open Approach (ICD-10-PCS; CPT 59514; principal; 2023-09-07 07:15)
DX: O34.211 Maternal care for low transverse scar from previous cesarean delivery (principal); O24.424 Gestational diabetes mellitus in childbirth, insulin controlled; F31.9 Bipolar disorder, unspecified; J45.20 Mild intermittent asthma, uncomplicated; F41.9 Anxiety disorder, unspecified; O99.214 Obesity complicating childbirth; Z37.0 Single live birth; O99.52 Diseases of the respiratory system complicating childbirth; O99.344 Other mental disorders complicating childbirth; Z3A.39 39 weeks gestation of pregnancy; O26.23 Pregnancy care for patient with recurrent pregnancy loss, third trimester; Z79.51 Long term (current) use of inhaled steroids; Z79.82 Long term (current) use of aspirin; Z79.899 Other long term (current) drug therapy; Z86.16 Personal history of COVID-19; Z87.59 Personal history of other complications of pregnancy, childbirth and the puerperium; Z87.891 Personal history of nicotine dependence
CPT/HCPCS: 59050; 82962; 85025; 85027; 86706; 86780; 86850; 86900; 86901; 87340; 99221; J7120; A4216; G0378; J2405

== ENCOUNTER → 2023-09-22 | Outpatient (CLI) | payer BC, SELFPAY | END | disposition home or self-care (01) | PROVIDERS: Visit Provider Nurse Practitioner Women's Health | DX: R30.0 Dysuria (principal) | CPT/HCPCS: 87086; 87088 ==